=== PATIENT | male | born 1950 | race Caucasian/White ===

== ENCOUNTER → 2019-02-26 13:49 | Outpatient (BNVA) | payer MEDICARE, SELFPAY | PROVIDERS: Family Provider Family Medicine; PCP Family Medicine; Referring Provider Family Medicine; Visit Provider Orthopaedic Surgery | DX: M25.469 Effusion, unspecified knee (principal) | CPT/HCPCS: 73560; 73565; L1830 ==

== ENCOUNTER 2019-02-26 16:33 | Outpatient (CLI) | payer MEDICARE, SELFPAY | END 2019-02-26 16:34 | disposition home or self-care (01) | LOC: SPT 16:34 | PROVIDERS: Family Provider Family Medicine; PCP Family Medicine; Visit Provider Orthopaedic Surgery | DX: M70.42 Prepatellar bursitis, left knee (principal) | CPT/HCPCS: L1830 ==

== ENCOUNTER 2019-04-15 06:07 | Day surgery (SDC) | payer MEDICARE, SELFPAY ==
[2019-04-14 11:26] VITALS: BMI 35.2
[2019-04-15 06:32] VITALS: BP 132/75; PULSE 63; RESP 18; TEMP 36.6; O2SAT 93
--- NOTE | 2019-04-15 06:43 | ANES.PREANE2 ---
Pre-Anesthetic Assessment Pre-Anesthetic Assessment: Height/Weight: Height 1.78 m Weight 111.13 kg Temp Pulse Resp BP Pulse Ox 97.9 F 63 18 132/75 93 04/15/19 06:32 04/15/19 06:32 04/15/19 06:32 04/15/19 06:32 04/15/19 06:32 Preop Diagnosis: prepatellar bursitis Proposed Procedure: Operation Date: 04/15/19 07:55 Proposed Procedures p Excision Mass/Lesion Lower Extremity knee prepatellar bursa(Left) - Ramon Rodriges MD Familial anesthetic complications: None Was Beta Sonya taken within 24 hours: N/A Last intake: Intake Last Liquid Date 04/14/19 Last Liquid Time 23:00 Last Solid Date 04/14/19 Last Solid Time 23:00 Social: Social History: No alcohol and No tobacco Exam: Pre-Anes Outpt Exam: alert, oriented x 3, clear to auscultation bilaterally and regular rate & rhythm Airway: Cervical ROM: WNL MP: 3 Additional comments: missing Pulmonary: Pulmonary: Sleep apnea (cpap) CV/HEM: CV/HEM: HTN : : None reported Hepatic: Hepatic: None reported GI: GI: None reported Metabolic: Metabolic: DM Musc/skel: Musc/skel: None reported Neuropsych: Neuropsych: None reported Anesthetic Plan: ASA status: 2 Anesthesia: General Risk of > 500 ml blood loss (7ml/kg in children): No PFSH Anesthesia PFSH: Social History Smoking and tobacco status: never smoked Alcohol intake: current Alcohol intake frequency: holidays/special occasions only Data Anesthesia Cardiac Studies: No Data to Display
[2019-04-15] MEDS: sodium chloride 0.9% 1,000 ML 30 ML IV (06:52)
[2019-04-15 06:55] LABS: Glucose Point of Care 150 mg/dL (70-110)
--- NOTE | 2019-04-15 08:02 | W.PM.OPSUD ---
Surgery/Procedure H&P Update DATE OF PROCEDURE: April 15, 2019 DATE H&P PERFORMED: 04/09/19 H&P UPDATE INFORMATION: I have reviewed H&P completed within last 30 days and No changes to prior documentation PREOP DIAGNOSIS: prepatellar bursitis PRIMARY INDICATION FOR PROCEDURE: Swelling left prepatellar bursa. Failed multiple aspirations PLANNED PROCEDURE: Operation Date: 04/15/19 07:55 Proposed Procedures p Excision Mass/Lesion Lower Extremity knee prepatellar bursa(Left) - Ramon Rodriges MD
[2019-04-15 09:29] VITALS: BP 144/99; PULSE 86; RESP 20; TEMP 36.2; O2SAT 96
[2019-04-15 09:35] VITALS: BP 135/84; PULSE 76; RESP 14; O2SAT 97
[2019-04-15 09:40] VITALS: BP 150/90; PULSE 74; RESP 16; TEMP 36.2; O2SAT 95
--- NOTE | 2019-04-15 09:43 | PM.OP ---
Operative Report Date of procedure: April 15, 2019 Pre-op Diagnosis: prepatellar bursitis Post-op Findings: Same Procedure Done: Excision prepatellar bursa Specimens removed/disposition: Prepatellar bursa Pathology: none sent Surgeon: Ramon Rodriges Anesthesia: General Estimated blood loss (mL): 25 Complications: None Findings: The patient had a large prepatellar bursa measuring approximately 8 cm in diameter over the anterior patella there is no purulence or other evidence of infection. As the physical appearance and history was entirely consistent with prepatellar bursitis the specimen was not sent to pathology Condition: stable Disposition: PACU Brief History: The patient is a 68-year-old male with a traumatic onset prepatellar bursitis. He was aspirated twice with recurrence. Due to the size and discomfort with the bursa surgical excision was chosen Procedure: The patient was taken to the operating room and given a general anesthesia. He was prepped and draped in the supine position with a tourniquet on the left thigh. The tourniquet was inflated to 325 mmHg. An anterior incision was made approximately 8 cm long with a scalpel blade. Upon entering the skin the bursal sac was penetrated producing large amounts of clear yellow fluid. Utilizing blunt dissection the the very thin bursal wall was then peeled off the subcutaneous tissue anteriorly, with dissection progressing first medially and then laterally. The bursal floor was then elevated off the patella, peritenon of the patellar tendon, and medial and lateral retinaculum. The tourniquet was deflated. Hemostasis provided with electrocautery and compression. Deep stitches were placed beginning far medially and laterally and working toward midline to close space. The skin was then closed with interrupted 3-0 Prolene stitches. Xeroflo gauze, 4 x 4's, ABD pads, compressive web roll, and Сергей wrap from ankle to thigh were applied. The patient was placed in a knee immobilizer.
[2019-04-15 09:44] VITALS: BP 144/100; PULSE 77; RESP 18; O2SAT 94
[2019-04-15] MEDS: oxyCODONE 5 mg IR Tab/Cap PO (09:59)
[2019-04-15 10:05] VITALS: BP 159/101; PULSE 75; RESP 18; O2SAT 94
== END 2019-04-15 10:30 | disposition home or self-care (01) ==
PROVIDERS: Family Provider Family Medicine; PCP Family Medicine; Visit Provider Orthopaedic Surgery
PROC: (CPT 27340; principal; 2019-04-15 07:55)
DX: M70.42 Prepatellar bursitis, left knee (principal); Z79.82 Long term (current) use of aspirin; Z79.84 Long term (current) use of oral hypoglycemic drugs; Z82.49 Family history of ischemic heart disease and other diseases of the circulatory system; G47.30 Sleep apnea, unspecified; I10 Essential (primary) hypertension; E11.9 Type 2 diabetes mellitus without complications
CPT/HCPCS: 27340; 12345; 36416; 82962; J0690; J1100; J1580; J1885; J2001; J2405; J2704; J3010; J7030